=== PATIENT | female | born 1950 | race African-American/Black ===

== ENCOUNTER → 2021-10-20 | Outpatient (CLI) | payer OTHER ==
[2021-10-20 15:02] LABS: ABSOLUTE NEUTROPHILS 4.1 thou/uL (1.4-8.2); BASOPHILS 1.1 % (0.0-2.0); EOSINOPHILS 2.9 % (0.0-3.0); HEMATOCRIT 43.8 % (37.0-47.0); HEMOGLOBIN 14.5 gm/dL (12.0-15.0); LYMPHOCYTES 32.5 % (24.0-44.0); MCH 29.1 pg (26.0-34.0); MCV 88.2 fL (80.0-100.0); MONOCYTES 5.7 % (1.0-8.0); PLATELET COUNT 251 thou/uL (150-400); POLYS 57.8 % (36.0-66.0); RBC 4.97 mil/uL (4.20-5.00); RDW 13.8 % (10.5-14.5); WBC 7.1 thou/uL (4.0-11.0)
[2021-10-20 15:17] LABS: ALBUMIN 3.9 g/dL (3.4-5.0); CALCIUM 9.8 mg/dL (8.5-10.1); CREATININE 0.9 mg/dL (0.6-1.0); POTASSIUM 3.6 mmol/L (3.5-5.1); TOTAL BILIRUBIN 0.8 mg/dL (0.2-1.0); TOTAL PROTEIN 6.9 g/dL (6.4-8.2)
== END ==
LOC: MRI 14:12
PROVIDERS: ATTEND Psychiatry & Neurology Neuromuscular Medicine
DX: I63.81 Other cerebral infarction due to occlusion or stenosis of small artery (principal); G93.89 Other specified disorders of brain; G45.9 Transient cerebral ischemic attack, unspecified; J34.89 Other specified disorders of nose and nasal sinuses

== ENCOUNTER → 2021-10-28 | Outpatient (CLI) | payer OTHER | LOC: MRI 11:52 | PROVIDERS: ATTEND Psychiatry & Neurology Neuromuscular Medicine | DX: G45.9 Transient cerebral ischemic attack, unspecified (principal) ==